=== PATIENT | male | born 1945 | race Caucasian/White ===

== ENCOUNTER 2017-02-10 22:56 | Emergency (ER) | payer OTHER ==
--- NOTE | 2017-02-10 23:07 | CPEKG ---
Heart Rate: 60 RR Interval: 1000 P-R Interval: 180 QRSD Interval: 108 QT Interval: 476 QTC Interval: 476 P [place]: 54 QRS [place]: 24 T Wave [place]: 23 EKG Severity - BORDERLINE ECG - EKG Impression: SINUS RHYTHM EKG Impression: BORDERLINE PROLONGED QT INTERVAL Electronically Signed By: Belén Lantigua 11-Feb-2017 05:57:15
[2017-02-10 23:23] LABS: % IMMATURE GRANULYOCYTES 0.4 % (0.0-1.1); ABSOLUTE IMMATURE GRANULOCYTES 0.04 10^3/uL (0.00-0.10); ADD DIFF? NO; ADD MORPH? NO; ADD SCAN? NO; ATYPICAL LYMPHOCYTE FLAG 0 (0-99); FRAGMENT RBC FLAG 0 (0-99); HEMATOCRIT 39.4 % (40.0-51.0); HEMOGLOBIN 14.1 g/dL (13.7-17.5); LEFT SHIFT FLG 0 (0-99); LIPEMIA HEMOLYSIS FLAG 90 (0-99); MEAN CELL HEMOGLOBIN 33.9 pg (27.9-34.1); MEAN CELL HEMOGLOBIN CONCENTR. 35.8 g/dL (32.4-36.7); MEAN CELL VOLUME 94.7 fL (81.5-99.8); MEAN PLATELET VOLUME 9.4 fL (8.7-11.7); PLATELET CLUMPS FLAG 0 (0-99); PLATELET COUNT 245 10^3/uL (150-400); RED BLOOD CELL COUNT 4.16 10^6/uL (4.40-6.38); RED CELL DISTRIBUTION WIDTH 12.5 % (11.5-15.2)
[2017-02-10 23:29] LABS: ALANINE AMINOTRANSFERASE 38 IU/L (21-72); ALBUMIN 4.4 g/dL (3.5-5.0); ALKALINE PHOSPHATASE 56 IU/L (38-126); ANION GAP 18 mEq/L (8-16); ASPARTATE AMINOTRANSFERASE 27 IU/L (17-59); BILIRUBIN,TOTAL 0.4 mg/dL (0.1-1.4); BILIRUBIN-CONJUGATED 0.2 mg/dL (0.0-0.5); BILIRUBIN-UNCONJUGATED 0.2 mg/dL (0.0-1.1); CALCIUM 9.6 mg/dL (8.5-10.4); CARBON DIOXIDE 20 mEq/l (22-31); CHLORIDE 103 mEq/L (97-110); CREATININE 1.2 mg/dL (0.7-1.3); GLOMERULAR FILTRATION RATE 59; GLUCOSE 143 mg/dL (70-100); POTASSIUM 3.8 mEq/L (3.5-5.2); SODIUM 141 mEq/L (134-144); TOTAL PROTEIN 7.1 g/dL (6.3-8.2)
[2017-02-10 23:40] LABS: TROPONIN I < 0.012 ng/mL (0.000-0.034)
--- NOTE | 2017-02-10 23:52 | EDPHY ---
H & P Stated Complaint: near syncope while at a bar, no food since 11 a.m. Time Seen by Provider: 02/10/17 23:03 HPI/ROS: HPI The patient presents with an episode of ALOC which occurred just prior to arrival. He is brought in by ambulance. The patient was at a restaurant, sitting at a table, when he began to feel tired, heavy, as of his head was spinning. His daughter then noticed he was unresponsive and his upper extremities were shaking. She helped him down to the ground and laid him flat. He then stop shaking but was unresponsive for several seconds. His administered CPR. He then became awake and felt generally out of it. He denies any chest pain, shortness of breath, palpitations. He has 1 similar episode in 2013 in which she was admitted to the hospital and had extensive workup which was unrevealing he says. He says he had eaten anything since about 11:30 a.m. this morning. He did use more marijuana that he usually does and says he was very high. He had one sips of alcohol.. REVIEW OF SYSTEMS Constitutional: No fever, no chills. Eyes: No discharge. ENT: No sore throat. Cardiovascular: No chest pain, no palpitations. Respiratory: No cough, no shortness of breath. Gastrointestinal: No abdominal pain, no vomiting. Genitourinary: No hematuria. Musculoskeletal: No back pain. Skin: No rashes. Neurological: No headache. PMHx: Hypothyroidism, history of some sort of neck malignancy Soc Hx: Lives with family, alcohol and marijuana use PHYSICAL General Appearance: Alert, no distress Eyes: Pupils equal and round no pallor or injection ENT, Mouth: Mucous membranes moist Respiratory: There are no retractions, lungs are clear to auscultation Cardiovascular: Regular rate and rhythm Gastrointestinal: Abdomen is soft and non-tender, no masses, bowel sounds normal Neurological: A&O, moves all extremities Skin: Warm and dry, no rashes Musculoskeletal: Neck is supple non tender Extremities: symmetrical, full range of motion Psychiatric: Patient is oriented X 3, there is no agitation Source: Patient, EMS Exam Limitations: No limitations - Personal History Current Tetanus/Diphtheria Vaccine: Unsure Current Tetanus Diphtheria and Acellular Pertussis (TDAP): Unsure - Medical/Surgical History Hx Asthma: No Hx Chronic Respiratory Disease: No Hx Diabetes: No Hx Cardiac Disease: No Hx Renal Disease: No Hx Cirrhosis: No Hx Alcoholism: No Hx HIV/AIDS: No Hx Splenectomy or Spleen Trauma: No Other PMH: ca in neck, hypothyroid. hernia repair - Social History Smoking Status: Never smoked Constitutional: Initial Vital Signs Temperature (C) 36.3 C 02/10/17 22:58 Heart Rate 60 02/10/17 22:58 Respiratory Rate 16 02/10/17 22:58 Blood Pressure 116/69 02/10/17 22:58 O2 Sat (%) 96 02/10/17 22:58 O2 Delivery Mode Room Air Allergies/Adverse Reactions: No Known Allergies Allergy (Verified 02/10/17 23:09) Home Medications: Medication Instructions Recorded Levothyroxine [Synthroid 100 mcg 100 mcg PO DAILY06 02/10/17 (*)] Medical Decision Making - Diagnostics EKG Interpretation: EKG: Complete interpretation has been separately recorded in the [facility] archive. Summary impression: Normal sinus rhythm Differential Diagnosis: This is a 71-year-old male with hypothyroidism, history of neck malignancy, who presents brought in by ambulance for an episode of ALOC which occurred just prior to arrival. He was at a restaurant after a concert and felt heavy and unwell and then had some shaking, then falling to the ground with the help of his daughter becoming unresponsive. This episode lasted for several seconds, when he awoke he felt generally out of it. He did not have any tongue biting or urinary incontinence. He was using marijuana and said use more than he usually does. After a L of fluid that was administered in the ambulance, he says he is feeling much better. Differential diagnosis includes vasovagal syncope, arrhythmia, less likely seizure, less likely [place]. In the emergency department, patient was monitored on the social media strategist with no events on telemetry. Vital signs remained stable. Labs were checked and were unremarkable including a troponin. He continued to feel better. He was able to walk around the emergency department without difficulty. I plan to discharge him home and he is in agreement with this plan. I have advised him that if he has another episode he should return to the emergency department, otherwise he should follow up with his primary care doctor in 1-2 days. - Data Points Laboratory Results: Laboratory Results 02/10/17 22:50 02/10/17 22:50 02/10/17 02/10/17 22:50 22:50 WBC 10.17 10^3/uL H 10^3/uL (3.80-9.50) RBC 4.16 10^6/uL L 10^6/uL (4.40-6.38) Hgb 14.1 g/dL g/dL (13.7-17.5) Hct 39.4 % L % (40.0-51.0) MCV 94.7 fL fL (81.5-99.8) MCH 33.9 pg pg (27.9-34.1) MCHC 35.8 g/dL g/dL (32.4-36.7) RDW 12.5 % % (11.5-15.2) Plt Count 245 10^3/uL 10^3/uL (150-400) MPV 9.4 fL fL (8.7-11.7) Neut % (Auto) 43.3 % % (39.3-74.2) Lymph % (Auto) 40.7 % % (15.0-45.0) [place] % (Auto) 11.4 % % (4.5-13.0) Eos % (Auto) 3.6 % % (0.6-7.6) Baso % (Auto) 0.6 % % (0.3-1.7) Nucleat RBC Rel Count 0.0 % % (0.0-0.2) Absolute Neuts (auto) 4.40 10^3/uL 10^3/uL (1.70-6.50) Absolute Lymphs (auto) 4.14 10^3/uL H 10^3/uL (1.00-3.00) Absolute Monos (auto) 1.16 10^3/uL H 10^3/uL (0.30-0.80) Absolute Eos (auto) 0.37 10^3/uL 10^3/uL (0.03-0.40) Absolute Basos (auto) 0.06 10^3/uL 10^3/uL (0.02-0.10) Absolute Nucleated RBC 0.00 10^3/uL 10^3/uL (0-0.01) Immature Gran % 0.4 % % (0.0-1.1) Immature Gran # 0.04 10^3/uL 10^3/uL (0.00-0.10) Sodium 141 mEq/L mEq/L (134-144) Potassium 3.8 mEq/L mEq/L (3.5-5.2) Chloride 103 mEq/L mEq/L (97-110) Carbon Dioxide 20 mEq/l L mEq/l (22-31) Anion Gap 18 mEq/L H mEq/L (8-16) BUN 28 mg/dL H mg/dL (7-23) Creatinine 1.2 mg/dL mg/dL (0.7-1.3) Estimated GFR 59 Glucose 143 mg/dL H mg/dL (70-100) Calcium 9.6 mg/dL mg/dL (8.5-10.4) Total Bilirubin 0.4 mg/dL mg/dL (0.1-1.4) Conjugated Bilirubin 0.2 mg/dL mg/dL (0.0-0.5) Unconjugated Bilirubin 0.2 mg/dL mg/dL (0.0-1.1) AST 27 IU/L IU/L (17-59) ALT 38 IU/L IU/L (21-72) Alkaline Phosphatase 56 IU/L IU/L (38-126) Troponin I < 0.012 ng/mL ng/mL (0.000-0.034) Total Protein 7.1 g/dL g/dL (6.3-8.2) Albumin 4.4 g/dL g/dL (3.5-5.0) Departure - Departure Disposition: Home, Routine, Self-Care Clinical Impression: Syncope Qualifiers: Syncope type: vasovagal syncope Qualified Code(s): R55 - Syncope and collapse Condition: Good Instructions: Syncope (DC) Additional Instructions: Please make sure to drink plenty of fluids for the next few days. If your feeling worse in any way, you should return to the emergency department. Otherwise I recommend that you follow up with your primary care doctor in 1-2 days for a recheck. Referrals: Patient,NotPresent [Unknown] - As per Instructions
[2017-02-11 00:38] VITALS: BP 118/79; RESP 16
[2017-02-11 00:47] VITALS: PULSE 66; TEMP 97.2; O2SAT 98
== END 2017-02-11 00:46 | disposition home or self-care (01) ==
LOC: EDUNIT#
DX: R55 Syncope and collapse (principal); Z85.89 Personal history of malignant neoplasm of other organs and systems